=== PATIENT | male | born 1955 | race Two or more races ===

== ENCOUNTER 2019-04-08 08:03 | Outpatient (CLI) | payer OTHER ==
[~2019-04-08 08:03] MED LIST: DILANTIN30 MG PO
== END 2019-04-08 09:46 | disposition home or self-care (01) ==
LOC: SONOGRAMA 08:03
DX: C76.0 Malignant neoplasm of head, face and neck (principal)

== ENCOUNTER → 2019-04-12 | Emergency (ER) | payer OTHER ==
[~2019-04-12] VITALS: Ht 167.6 cm; Wt 49.9 kg
== END | disposition left against medical advice (07) ==
LOC: ER 15:27
DX: Z53.20 Procedure and treatment not carried out because of patient's decision for unspecified reasons (principal)